=== PATIENT | male | born 1945 | race Asian ===

== ENCOUNTER 2017-05-20 10:45 | Day surgery (SDC) | payer BC ==
[~2017-05-20] VITALS: Ht 162.6 cm; Wt 72.6 kg
[2017-05-20] VITALS (10 sets, daily range): BP systolic 131–158; BP diastolic 62–82
[~2017-05-20 10:45] MED LIST: HUMALOG100 UNIT/4 SUBQ; HUMULIN N100 UNIT/1 SUBQ
[2017-05-20] MEDS ORDERED: Cyclopentolate 1% Opth Sol 2ml ONE (11:42)
[2017-05-20] MEDS ORDERED: Phenylephrine 2.5% Op 2ml Soln ONE (11:42)
[2017-05-20] MEDS: Phenylephrine 2.5% Op 2ml Soln LEFT EYE SCH ×3 (11:43→12:08)
[2017-05-20] MEDS: Cyclopentolate 1% Opth Sol 2ml LEFT EYE SCH ×3 (11:43→12:08)
[2017-05-20] MEDS ORDERED: LOSARTAN POTAS100 MG ORAL (12:12)
[2017-05-20] MEDS ORDERED: NORVASC10 MG ORAL (12:12)
[2017-05-20] MEDS ORDERED: RENVELA800 MG ORAL (12:12)
[2017-05-20] MEDS ORDERED: CALCITRIOL0.25 MCG PO (12:12)
[2017-05-20] MEDS ORDERED: ATORVASTATIN CA20 MG ORAL (12:12)
[2017-05-20] MEDS ORDERED: TUMS500 MG ORAL (12:12)
--- NOTE | 2017-05-20 13:26 | Pre-Procedure Note/Attestation ---
Pre-Procedure Note/Attestation Complete Prior to Procedure Planned Procedure: left Procedure Narrative: ppv/el/afx/gas os Indications for Procedure Pre-Operative Diagnosis: RD os Attestation I attest that I discussed the nature of the procedure; its benefits; risks and complications; and alternatives (and the risks and benefits of such alternatives ), prior to the procedure, with the patient (or the patient's legal food products sales representative). I attest that, if there was a reasonable possibility of needing a blood transfusion, the patient (or the patient's legal food products sales representative) was given the [facility] standardized written summary, pursuant to the [place] Blood Safety Act ([place] Health and Safety Code # 1645, as amended). I attest that I re-evaluated the patient just prior to the surgery and that there has been no change in the patient's H&P, except as documented below: HONEY IRIWN M.D. May 20, 2017 13:26
[2017-05-20] MEDS ORDERED: Lidocaine 1% MPF 10mg/ml 5ml ONE (14:00)
[2017-05-20] MEDS ORDERED: Sterile Water Irrig 1000ml IRRIG ONE (14:00)
[2017-05-20] MEDS ORDERED: LR 1000ml ONE (14:00)
[2017-05-20] MEDS ORDERED: Propofol 200mg/20ml IV ONE (14:00)
[2017-05-20] MEDS ORDERED: NS Irrig 2000ml IRRIG ONE (14:00)
[2017-05-20] MEDS ORDERED: BSS 500ml btl ONE ×2 (14:08→14:44)
[2017-05-20] MEDS ORDERED: Pred Forte 1% Opth Susp 1ml ONE (14:09)
[2017-05-20] MEDS ORDERED: Kenalog-40 1ml Vial ONE (14:09)
[2017-05-20] MEDS ORDERED: Maxitrol Opth Oint 3.5gm ONE (14:10)
[2017-05-20] MEDS ORDERED: Dexamethasone 4mg/ml vial ONE (14:10)
[2017-05-20] MEDS ORDERED: Kenalog-10 5ml Inj ONE (14:10)
[2017-05-20] MEDS ORDERED: Tetracaine 0.5% Opth 4ml Soln ONE (14:10)
[2017-05-20] MEDS ORDERED: Povidone-Iodine 5% opth solution ONE (14:11)
[2017-05-20] MEDS ORDERED: Lidocaine 2% MPF 5ml Vial INJ ONE (14:11)
[2017-05-20] MEDS ORDERED: BSS 15ml BTL ONE (14:12)
[2017-05-20] MEDS ORDERED: Goniosol 2.5% Opth Soln - 15ml ONE (14:12)
[2017-05-20] MEDS ORDERED: Bupivacaine 0.75% 30ml vial INJ ONE (14:12)
--- NOTE | 2017-05-20 14:18 | Anethesia Preoperative Eval ---
Anesthesia Pre-op PMH/ROS General Date of Evaluation: May 20, 2017 Anesthesiologist: Eric ASA Score: ASA 3 Mallampati Score Class I : Soft palate, uvula, fauces, pillars visible Class II: Soft palate, uvula, fauces visible Class III: Soft palate, base of uvula visible Class IV: Only hard plate visible Mallampati Classification: Class III Surgeon: Esperanza Diagnosis: Left eye retinal detachment Surgical Procedure: Left eye vitrectomy Anesthesia History: none Family History: no anesthesia problems Allergies: Coded Allergies: No Known Allergies (Verified , 05/20/17) Medications: see eMAR Past Medical History Cardiovascular: Reports: HTN, CAD - s/p stents x6, stable, other - HLD, Denies: WI, valve dz, arrhythmia Pulmonary: Denies: asthma, COPD, JOHN, other Gastrointestinal/Genitourinary: Reports: ESRD - on PD, Denies: GERD, CRI, other Neurologic/Psychiatric: Denies: dementia, CVA, depression/anxiety, TIA, other Endocrine: Reports: DM, Denies: hypothyroidism, steroids, other HEENT: Denies: cataract (L), cataract (R), glaucoma, [place] (L), [place] (R), other Hematology/Immune: Denies: anemia, DVT, bleeding disorder, other Musculoskeletal/Integumentary: Denies: OA, RA, DJD, DDD, edema, other PSxH Narrative: right cataract, Anesthesia Pre-op Phys. Exam Physician Exam Last Vital Signs Date Time Temp Pulse Resp B/P (MAP) Pulse Ox O2 Delivery O2 Flow Rate FiO2 05/20/17 11:24 98.0 75 18 131/62 99 Room Air Constitutional: NAD Cardiovascular: RRR Respiratory: CTA Airway Exam Mallampati Score: Class III MO: full ROM: full Teeth: intact Anesthesia Pre-op A/P Labs Chemistry Test 05/20/17 13:15 Potassium Level 4.3 MMOL/L (3.5-5.1) Studies Pre-op Studies: EKG - 1st degree av blovk Risk Assessment & Plan Assessment: ASA III Plan: MAC Status Change Before Surgery: No Pre-Antibiotics Drug: N/A RYLIE ALICEA M.D. May 20, 2017 14:18
--- NOTE | 2017-05-20 15:00 | Immediate Post-Op Evaluation ---
Immediate Post-Op Evalulation Immediate Post-Op Evalulation Procedure: Left eye virectomy Date of Evaluation: May 20, 2017 Time of Evaluation: 15:41 IV Fluids: 100 Blood Products: 0 Estimated Blood Loss: 0 Urinary Output: 0 Blood Pressure Systolic: 149 Blood Pressure Diastolic: 74 Pulse Rate: 68 Respiratory Rate: 16 O2 Sat by Pulse Oximetry: 99 Temperature (Fahrenheit): 97.1 Pain Score (1-10): 0 Nausea: No Vomiting: No Complications 0 Patient Status: awake, reacts, patent, none Hydration Status: adequate Drug: N/A RYLIE ALICEA M.D. May 20, 2017 15:00
--- NOTE | 2017-05-20 15:01 | 48 Hour Post Anesthesia Eval ---
Post Anesthesia Evaluation Procedure: Left eye virectomy Date of Evaluation: May 20, 2017 Time of Evaluation: 17:05 Blood Pressure Systolic: 154 0: 70 Pulse Rate: 78 Respiratory Rate: 16 Temperature (Fahrenheit): 98 O2 Sat by Pulse Oximetry: 100 Airway: patent Nausea: No Vomiting: No Pain Intensity: 0 Hydration Status: adequate Cardiopulmonary Status: at baseline Mental Status/LOC: patient returned to baseline Post-Anesthesia Complications: 0 Follow-up care needed: ready to discharge RYLIE ALICEA M.D. May 20, 2017 15:01
[2017-05-20] MEDS ORDERED: LR 1000ml 1,000 ML IVLG SCH (15:02)
[2017-05-20] MEDS ORDERED: DiphenhydrAMINE 50mg/ml Inj IVP PRN (15:15)
--- NOTE | 2017-05-20 15:35 | Operative Note - PDOC ---
Operative Note Operative Note Pre-op Diagnosis: RD os Procedure: ppv/el/crf8 os Post-op Diagnosis: same as pre-op Operative Findings: consistent w/pre-op dx studies Surgeon: cristobal Anesthesia: local Specimen: none Complications: none Condition: stable Estimated Blood Loss: none Drains: none Implant(s) used?: No HONEY IRWIN M.D. May 20, 2017 15:35
[2017-05-20] MEDS ORDERED: Norco 5mg/325mg tab ORAL PRN (15:45)
--- NOTE | 2017-05-21 19:00 | Operative Note - Dictated ---
DATE OF OPERATION: 05/21/2017 PREOPERATIVE DIAGNOSES: 1. Retinal detachment, left eye. 2. Vitreous hemorrhage, left eye. 3. Diabetic retinopathy, left eye. POSTOPERATIVE DIAGNOSES: 1. Retinal detachment, left eye. 2. Vitreous hemorrhage, left eye. 3. Diabetic retinopathy, left eye. PROCEDURE: Pars plana vitrectomy, endolaser air-fluid exchange C3F8 gas, left eye. PRIMARY SURGEON: Demario Mata M.D. ROVING OR YARN COLOR CHECKER: None. ANESTHESIA: Monitored anesthesia care with retrobulbar injection. ESTIMATED BLOOD LOSS: None. COMPLICATIONS: None. INDICATIONS: The patient had a macular-threatening retinal detachment in the left eye. After benefits, alternatives, and risks were discussed, an informed consent was signed. DESCRIPTION OF PROCEDURE: The patient was brought to the operating theater and identified. The patient was then given a retrobulbar block to the left eye using usual mixture of Marcaine and lidocaine with a retrobulbar needle under intravenous sedation. The left eye was then prepped and draped in the usual sterile fashion and a lid speculum was placed. A surgical pause was repeated. Under the operating microscope, a 23-gauge valved trocar/cannula was inserted in the inferotemporal quadrant at a distance of 3.5 mm posterior to the limbus using conjunctival displacement in an oblique incision pattern. Infusion line was attached and observed and then turned on. The superotemporal and superonasal cannulas were placed in a similar fashion. Under the operating microscope, the Baboo visualization system was brought into view. A light pipe and vitrectomy cutter was placed into the eye and focus obtained. Core vitrectomy was then performed and the retinal detachment was noted to be temporal in location and encroaching the macula, but not at the fovea. The retinal detachment was identical to what was seen in the clinic prior. Vitrectomy ensued in a systematic fashion starting with removal of core vitreous followed by peripheral vitreous shaving that was aided by scleral depression provided by my assistant store manager trainee. There were scattered PRP scars and areas of attached retina, which were mild. There were several retinal hemorrhages in attached retina consistent with diabetic retinopathy. Next, diathermy was used to michaela the retinal tear at 3 o'clock. A retinotomy was made in a superotemporal mid periphery. Air-fluid exchange was then performed. Laser was then given to the retinotomy and to the retinal tear and in a 360-degree fashion peripherally. At this point, some residual fluid had accumulated posteriorly, so a very small retinotomy was made along the inferotemporal arcade outside of the macula and the fluid was drained with a soft-tip cannula. Very light laser was given to this area as well. At this point, the retina was completely attached and there was full air-fill. Next, under the operating microscope, the superonasal cannula was removed. A 15% C3F8 gas was diluted and injected through the infusion line and allowed to vent through the superotemporal cannula. The remaining cannulas were removed and there was no evidence of wound leak and I had palpated pressure of approximately 10. Subconjunctival vancomycin and dexamethasone were then injected. The lid speculum and drape were removed and periocular area cleaned. Atropine drops and Maxitrol ointment were placed on the ocular surface and a patch and shield were fixed over the closed lids with tape. The patient was taken to the recovery area in good spirits and in no pain. He was placed in the face-down position. He was instructed to be face-down for one week and it will be acceptable for him to sleep on his right side. Gas precautions were also reviewed and gas wristband was placed. There were no complications during this case. Demario Mata M.D. DR: Bisi JOB#: [id number] CC: PAM
[2017-05-24 08:47] VITALS: BP 154/70
== END 2017-05-20 14:25 | disposition home or self-care (01) ==
LOC: SUR 10:45
DX: H33.22 Serous retinal detachment, left eye (principal); H43.12 Vitreous hemorrhage, left eye; E11.319 Type 2 diabetes mellitus with unspecified diabetic retinopathy without macular edema; I12.0 Hypertensive chronic kidney disease with stage 5 chronic kidney disease or end stage renal disease; E11.22 Type 2 diabetes mellitus with diabetic chronic kidney disease; N18.6 End stage renal disease; E78.5 Hyperlipidemia, unspecified; I44.0 Atrioventricular block, first degree; Z95.5 Presence of coronary angioplasty implant and graft; I25.2 Old myocardial infarction; Z79.82 Long term (current) use of aspirin; Z79.4 Long term (current) use of insulin; Z83.3 Family history of diabetes mellitus; Z80.0 Family history of malignant neoplasm of digestive organs; Z82.49 Family history of ischemic heart disease and other diseases of the circulatory system
CPT/HCPCS: 36415; 67025; 67036; 82962; 84132; J1100; J2704; J3370; J3470; J3490; J7120; 94003; 94150